=== PATIENT | male | born 1955 | race African-American/Black ===

== ENCOUNTER → 2016-08-02 | Outpatient (CLI) | payer OTHER | LOC: COL.RAD 07-29 07:30 | DX: S43.491A Other sprain of right shoulder joint, initial encounter (principal); M77.8 Other enthesopathies, not elsewhere classified; M19.011 Primary osteoarthritis, right shoulder ==

== ENCOUNTER 2022-01-18 05:36 | Day surgery (SDC) | payer MEDICARE, OTHER ==
[~2022-01-18] VITALS: Ht 180.3 cm; Wt 78.4 kg
[2022-01-18] VITALS (11 sets, daily range): BP systolic 124–157; BP diastolic 63–98; PULSE 62–89; TEMP 97.2–98.4
[2022-01-18] MEDS ORDERED: ZOCOR 20MG20 MG PO (06:01)
--- NOTE | 2022-01-18 07:05 | NUR ---
Patient brought back to OR. Patient's belongs brought to PACU, labeled with patient sticker. brought back into surgical waiting room.
--- NOTE | 2022-01-18 11:50 | NUR ---
arrived on unit per bed from PACU, awake and aler but very sleepy, opens eyes and does verbalize location, IV infusing and placed on pump at 100ml/hr, bolden catheter in place draining clear yellow urine, has 6 robotic sites that are CD&I, full assessment completed, see interventions for further, denies needs, at bedside
--- NOTE | 2022-01-18 12:15 | NUR ---
patient more awake now, arouses easily and talks with nurses and his
--- NOTE | 2022-01-18 12:30 | NUR ---
awake and talking with , medicated with scheduled tylenol, denies N/V or pain
[2022-01-18] MEDS ORDERED: MULTI VITAMINS1 TAB (13:28)
--- NOTE | 2022-01-18 14:32 | NUR ---
continues to doze between checks, arouses and awkens easily, remains at bedside, denies needs
--- NOTE | 2022-01-19 02:32 | NUR ---
PATIENT IN CHAIR ON ROOM ENTRY AT SHIFT CHANGE. ALERT AND ORIENTED. WAS AT BEDSIDE. HS MEDS PER EMAR. C/O MINIMAL PAIN BUT DENIES ADDITIONAL PAIN MEDICATIONS. ARNDT TO DD WITH PINK OUTPUT. 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 REMAINS ON ROOM AIR.
[2022-01-19 04:15] VITALS: BP 122/72; PULSE 64; TEMP 97.8
[2022-01-19 06:24] LABS: HEMOGLOBIN 12.6 g/dl (13.5-18.0)
[2022-01-19 06:28] LABS: HEMATOCRIT 36.5 % (42.0-52.0)
[2022-01-19 06:55] LABS: CALCIUM 8.8 mg/dL (8.4-10.2); CREATININE, serum 1.22 mg/dL (0.72-1.25); POTASSIUM 4.4 mmol/L (3.5-4.5)
[2022-01-19 07:15] VITALS: BP 123/71; BP 1236/71; PULSE 65; TEMP 97.7
--- NOTE | 2022-01-19 08:49 | NUR ---
PT RESTING IN BED. ARNDT CATHETER TO DD WITH CLEAR YELLOW URINE IN BAG. VSS, ASSESSMENTS COMPLETE. AM MEDS GIVEN ORDERED.
--- NOTE | 2022-01-19 10:10 | NUR ---
Initial visit; Patient was a blessing and enjoyed prayer with Anesthetic Assistant. He stated prayer was something he could feel and know when it is sincere. 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 Anesthetic Assistant wished Tee well and mentioned what a blessings it was to meet him.
[2022-01-19 11:41] VITALS: BP 121/67; PULSE 66; TEMP 98
--- NOTE | 2022-01-19 12:49 | NUR ---
oven worker met with patient to complete intake and discuss discharge plan. Patients Shy ([phone]) present at bedside. Patient lives at home with his in [facility]. He is independent with his ADL's and does not utilize any DME to assist with mobility. Patient has no home oxygen needs. He receives PCP through [facility]. He receives his medications through [facility] as well. Patient does not have a DPOA-HCestablished and does not wish to create one at this time. Patient and Shy are both provided education. Patient verbalizes his undersstanding and agreement that Shy is his legal decision maker. Discharge plan:Home
--- NOTE | 2022-01-19 15:55 | NUR ---
REVIEWED DISCHARGE INSTRUCTIONS WITH PT AND . ARNDT CATH CARE INSTRUCTIONS REVIEWED WITH PATEINT AND . ALL VERBALIZED UNDERSTANDING.
== END 2022-01-19 15:58 | disposition home or self-care (01) ==
LOC: SDCO 05:36 → SURG 11:50 → SDCO 01-19 15:58
PROVIDERS: Urology
DX: C61 Malignant neoplasm of prostate (principal)
CPT/HCPCS: A4314; A9284; J0690; J1100; J1885; J2405; J2704; J3010; J7120